=== PATIENT | male | born 1995 | race Caucasian/White ===

== ENCOUNTER 2020-03-11 04:45 | Emergency (ER) | payer BC ==
[~2020-03-11] VITALS: Ht 180.3 cm; Wt 111.1 kg
[2020-03-11 04:49] VITALS: BP 129/86
--- NOTE | 2020-03-11 04:49 | NUR ---
PT AMBULATED TO BED #4
[2020-03-11 05:01] VITALS: BP 129/86
--- NOTE | 2020-03-11 05:04 | NUR ---
24 Y/O M PRESENTS TO ED C/O LEFT LOWER BACK PAIN X 1 WEEK. PT STATES THAT HE FELL ON HIS BACK AT WORK X3 WEEKS AGO. PT DENIES LOC, HITTING HEAD, N/V/D. STATES THAT HE STARTED NOTICING THAT LOWER BACK PAIN HAS GOTTEN WORST. PT RATES PAIN TO BE 3/10. DENIES TAKING OTC MEDS. AIRWAY INTACT, RR EVEN AND UNLABORED. LUNG SOUNDS CLEAR UPON AUSCULTATION. BED LOCKED AND IN LOWEST POSITION, SIDE RAIL UPX1. WILL CONTINUE TO MONITOR. MHX: DENIES NKA
[2020-03-11] MEDS ORDERED: KETOROLAC 60 MG/2 ML VIAL IM ONE (05:10)
--- NOTE | 2020-03-11 06:06 | NUR ---
Patient discharged with v/s stable. Written and verbal after care instructions given and explained BY DIOGENES FRANCO .Patient alert, oriented and verbalized understanding of instructions. Ambulatory with steady gait. All questions addressed prior to discharge. ID band removed. Patient advised to follow up with PMD. Rx of NAPROSYN given. Patient educated on indication of medication including possible reaction and side effects. Opportunity to ask questions provided and answered.
== END 2020-03-11 06:06 | disposition home or self-care (01) ==
LOC: MED 04:45
DX: S33.9XXA Sprain of unspecified parts of lumbar spine and pelvis, initial encounter (principal); X58.XXXA Exposure to other specified factors, initial encounter; Y93.89 Activity, other specified; Y92.89 Other specified places as the place of occurrence of the external cause; Y99.8 Other external cause status
CPT/HCPCS: 96372; 99283; J1885

== ENCOUNTER 2020-03-14 01:20 | Emergency (ER) | payer BC ==
[~2020-03-14] VITALS: Ht 180.3 cm; Wt 117.9 kg
[2020-03-14 01:24] VITALS: BP 140/103
[2020-03-14] MEDS ORDERED: MORPHINE SULFATE 4 MG/ML SYR IM ONE (01:45)
[2020-03-14] MEDS ORDERED: NACL 0.9% 1,000 ML IV SCH (02:15)
[2020-03-14] MEDS ORDERED: ONDANSETRON 4 MG/2 ML VIAL IVP ONE (02:15)
[2020-03-14 02:47] VITALS: BP 140/103
== END 2020-03-14 02:49 | disposition home or self-care (01) ==
LOC: MED 01:20
DX: M54.42 Lumbago with sciatica, left side (principal)
CPT/HCPCS: 72100; 73502; 96372; 99284; J2270